=== PATIENT | male | born 1985 | race Hispanic/Latino ===

== ENCOUNTER 2018-03-04 17:49 | Inpatient (IN) | payer SELFPAY ==
[2018-03-04 18:29] LABS: Bilirubin Negative (Negative); Blood, Urine Negative (Negative); Clarity CLEAR (Clear); Glucose, Urine (Dipstick) 100 mg/dL (Negative); Leukocyte Negative (Negative); Nitrite Negative (Negative); Protein, Urine (Dipstick) Negative (Neg-Trace); Specific Gravity, Urine 1.011 (1.002-1.036); Urobilinogen 0.2 mg/dL (0.2-1.0)
[2018-03-04] MEDS ORDERED: Morphine 4 MG/ML VIAL ONE (18:35)
[2018-03-04] MEDS ORDERED: Sodium Chloride 0.9% 1,000 ML IV SCH (21:38)
[2018-03-04] MEDS ORDERED: Ondansetron ODT 4 MG TAB SL PRN (21:38)
[2018-03-04] MEDS ORDERED: Ondansetron PF 4 MG/2 ML Vial IVP PRN (21:38)
[2018-03-04] MEDS: Morphine 4 MG/ML VIAL SLOW IVP PRN (21:43)
[2018-03-04 21:57] VITALS: BMI 26.9
[2018-03-04] MEDS ORDERED: Bisacodyl 10 MG SUPP PR PRN (23:17)
[2018-03-04] MEDS ORDERED: Senokot S 8.6-50 MG TAB PO PRN (23:17)
[2018-03-04] MEDS ORDERED: Bisacodyl 5 MG TAB PO PRN (23:17)
[2018-03-05] MEDS: Morphine 4 MG/ML VIAL SLOW IVP PRN ×7 (00:13→21:04)
[2018-03-05] MEDS: Lactated Ringer's 1,000 ML IV SCH ×6 (00:14→22:56)
[2018-03-05 07:45] LABS: #Lymphocytes 1.3 thou/uL (1.20-3.40); #Monocytes 1.1 thou/uL (0.11-0.59); #Neutrophils 12.5 thou/uL (1.40-6.50); %Basophils 0.1 % (0.0-1.0); %Eosinophils 0.1 % (0.0-10.0); %Lymphocytes 8.6 % (21.0-51.0); %Monocytes 7.7 % (0.0-10.0); %Neutrophils 83.6 % (42.0-75.0); Hemoglobin 16.3 g/dL (14.0-18.0); Mean Corpuscular HGB CONC 34.1 g/dL (32.0-36.0); Mean Corpuscular Volume 79.2 fL (78.0-98.0); Mean Platelet Volume 8.6 fL (7.4-10.4); Platelet Count 230 thou/uL (130-400); RBC Distribution Width 12.4 % (11.5-14.5); Red Blood Cell (RBC) Count 6.04 mill/uL (4.70-6.10); White Blood Cell (WBC) Count 14.9 thou/uL (4.8-10.8)
[2018-03-05 08:08] LABS: Anion Gap 16 mmol/L (10-20); BUN (Urea Nitrogen) 12 mg/dL (8.9-20.6); Calc. Creatinine Clearance 143 mL/min (70-130); Calcium 8.4 mg/dL (7.8-10.44); Carbon Dioxide 21 mmol/L (22-29); Chloride 101 mmol/L (98-107); Cholesterol 174 mg/dl (< 200 Desired); Estimated GFR-MDRD Greater than 90; Glucose 177 mg/dL (70-105); HDL Cholesterol 43 mg/dL (>60 Neg Risk); LDL Cholesterol, Calculated 107 mg/dL; Potassium 3.8 mmol/L (3.5-5.1); Sodium 134 mmol/L (136-145); Triglycerides 121 mg/dL (Less than 150)
--- NOTE | 2018-03-05 09:16 | ULT ---
RIGHT UPPER QUADRANT ULTRASOUND: DATE: 03/05/2018. COMPARISON: None. HISTORY: Pancreatitis, evaluate for gallstones. TECHNIQUE: Multiplanar, hawkins scale sonographic imaging right upper quadrant obtained. FINDINGS: Broadcast Supervisor did not comment on the presence or absence of a Pacheco's sign. Pancreas is not well asses sed on this study secondary to overlying bowel gas. The pancreas does appear prominent in the AP dim ension, which could signify enlargement on the basis of pancreatitis given provided history of pancre atitis. The hepatic parenchyma is heterogeneous and echogenic, suggesting hepatocellular disease, such as acrol ann atosis. The common bile duct measures 4 mm, within normal limits. No gallbladder wall thickening or pericholecystic fluid. No gallstones are evident on this exam. Th ere may be small volume gallbladder sludge versus artifact. The right kidney measured 11.8 cm cranio caudal dimension and demonstrates no stone, hydronephrosis, or mass. IMPRESSION: Technically limited assessment secondary to bowel gas demonstrating no evidence for cholelithiasis. Probable hepatic steatosis. No biliary dilatation. POS: FR[facility]ESCO
[2018-03-05] MEDS ORDERED: Morphine 4 MG/ML VIAL IV SCH (09:45)
--- NOTE | 2018-03-05 10:41 | CON ---
DATE OF CONSULTATION: HISTORY OF PRESENT ILLNESS: The patient is a 32-year-old male, who was in his normal state of health until the day prior to admission when he developed severe abdominal pain. He reports this was in his periumbilical area. He had a previous episode of pancreatitis back in September of 2016, and he says this pain is the same as that episode. He has had no nausea or vomiting. No weight loss. No fever or chills. No melena or hematochezia. PAST MEDICAL HISTORY: Essentially negative. PAST SURGICAL HISTORY: Negative. MEDICATIONS: He denies any prescription medicines. SOCIAL HISTORY: He does not smoke. He drinks, he says 14 beers per day, one day a week. His prior history included large amounts of alcohol. FAMILY HISTORY: Negative. REVIEW OF SYSTEMS: Ten systems were reviewed and were negative except for above. PHYSICAL EXAMINATION: GENERAL: Shows a well-developed, well-nourished male, in no acute distress. VITAL SIGNS: Temperature 98.4, pulse 84, respiratory rate 18, and blood pressure 138/89. HEENT: Unremarkable. NECK: Supple. CHEST: Clear. CARDIOVASCULAR: Regular rate and rhythm without murmurs or gallops. ABDOMEN: Soft, tender diffusely without organomegaly or masses. RECTAL: Deferred. EXTREMITIES: Normal. NEUROLOGIC: Nonfocal. DIAGNOSTIC DATA: Abdominal ultrasound showed a technically limited assessment secondary to overlying bowel gas, but no gallstones are noted. Fatty liver is noted. No biliary dilatation is noted. Prior abdominal CT in September of 2016 showed pancreatitis. Admission hemoglobin was 17.0, hematocrit of 52.2, and white blood cell count of 14.1. Repeat hemoglobin showed a level of 16.3. Chemistry showed normal LFTs, triglyceride of 121. Amylase of 1609, lipase of 5874. ASSESSMENT: 1. Acute alcoholic pancreatitis. 2. Alcohol abuse. RECOMMENDATIONS: 1. Continue aggressive IV rehydration. 2. N.p.o. 3. Alcohol abstinence. 4. We will follow with you. Job ID: [id number]
[2018-03-05] MEDS ORDERED: Ondansetron PF 4 MG/2 ML Vial IVP PRN (12:26)
--- NOTE | 2018-03-05 12:34 | PDOC.PN ---
- Subjective Encounter Start Date: 03/05/18 Encounter Start Time: 12:25 Subjective: f/u for ETOH-induced pancreatitis on IVF's, Morphine sulfate. Pain improved -: with Morphine, no N/V. Currently NPO. - Objective Resuscitation Status - Order Detail: 03/04/18 23:17 Resuscitation Status Routine Resuscitation Status: FULL: Full Resuscitation MAR Reviewed: Yes Vital Signs & Weight: Vital Signs (12 hours) Temp Pulse Resp BP Pulse Ox 03/05/18 11:21 98.9 F 83 18 151/93 H 94 L 03/05/18 08:00 93 L 03/05/18 07:35 98.4 F 84 18 138/89 93 L 03/05/18 04:00 98.5 F 75 17 150/94 H 94 L Weight Weight 171 lb 9.6 oz I&O: 03/04/18 03/05/18 03/06/18 06:59 06:59 06:59 Intake Total 1500 Balance 1500 Result Diagrams: 03/05/18 07:16 03/05/18 07:16 Additional Labs: Laboratory Tests 03/04/18 03/05/18 15:15 07:16 AST 29 ALT 42 Alkaline Phosphatase 94 Triglycerides 121 Lipase 5874 H Radiology Reviewed by me: Yes (ABD sono - hepatic steatosis, no cholelithiasis) Phys Exam - Physical Examination Constitutional: NAD HEENT: PERRLA, sclera anicteric, oral pharynx no lesions Neck: no nodes, no JVD, supple, full ROM Respiratory: no wheezing, no rales, no rhonchi, clear to auscultation bilateral S1, S2 Cardiovascular: RRR, no significant murmur, no rub, gallop + TTP in mid-epigastric region Gastrointestinal: soft, no distention, positive bowel sounds Musculoskeletal: no edema, pulses present Neurological: normal sensation, moves all 4 limbs Psychiatric: A&O x 3 Skin: no rash, normal turgor, cap refill <2 seconds Dx/Plan (1) Alcohol-induced pancreatitis Code(s): K85.20 - ALCOHOL INDUCED ACUTE PANCREATITIS WITHOUT NECROSIS OR INFCT Status: Acute Qualifiers: Chronicity: acute Comment: ETOH-induced, NPO, IVF's, pain control with Morphine Sulfate IV, serial Lipase (2) Alcohol abuse Code(s): F10.10 - ALCOHOL ABUSE, UNCOMPLICATED Status: Chronic Comment: Counseled regarding effects for recurrence, encourage abstinence (3) Leukocytosis Code(s): D72.829 - ELEVATED WHITE BLOOD CELL COUNT, UNSPECIFIED Status: Acute Comment: Secondary to #1, serial monitoring, no evidence for focal infectious process (4) Hypertension Code(s): I10 - ESSENTIAL (PRIMARY) HYPERTENSION Status: Chronic Qualifiers: Hypertension type: essential hypertension Qualified Code(s): I10 - Essential (primary) hypertension Comment: No current outpt tx, serial monitoring, consider medical therapy prior to d/c - Plan out of bed/ambulate Stable currently -: Continue IVF's -: Continue Morphine Sulfate IV for pain control -: NPO another 24h -: AM lab: CMP, CBC, Lipase * .
[2018-03-05] MEDS: Acetaminophen 325 MG TAB PO PRN (21:10)
[2018-03-06] MEDS: Morphine 4 MG/ML VIAL SLOW IVP PRN ×4 (00:02→23:47)
[2018-03-06] MEDS: Acetaminophen 650 MG Suppository PR PRN ×2 (00:10→08:54)
--- NOTE | 2018-03-06 01:30 | HP ---
CHIEF COMPLAINT: Abdominal pain. HISTORY OF PRESENT ILLNESS: This is a 32-year-old male with past medical history of pancreatitis, ethanol abuse, presenting with abdominal pain which started the day prior to this hospital visit. Per the patient, he has been having abdominal pain which started around the umbilicus region, radiates to the epigastric and the pain went to his back. The patient states that he binge drank the day prior to the admission and that is when around the time the pain started. The patient states that the pain is 7/10, severe, constant pain. At this point, the patient denies any fever, chills, dizziness, headaches, chest pain, palpitations, dysuria, hematuria, melena, or hematochezia. The patient endorses nausea and decreased p.o. intake. Of note, the patient had pancreatitis in September of 2016. REVIEW OF SYSTEMS: Positive for abdominal pain, nausea, and vomiting. Otherwise as documented, all other systems reviewed and are negative. PAST MEDICAL HISTORY: Gastritis, pancreatitis, binge drinking. FAMILY HISTORY: reviewed and non-contributory PAST SURGICAL HISTORY: No surgical history. PSYCHIATRIC HISTORY: No previous psych history. SOCIAL HISTORY: The patient denies illicit drug use or smoking. The patient drinks heavily on occasions. ALLERGIES: NO KNOWN DRUG ALLERGIES MEDICATIONS. CURRENT MEDICATIONS: No current medications. PHYSICAL EXAMINATION: VITAL SIGNS: The patient's blood pressure 162/106, pulse of 92, respiratory rate of 18, O2 saturation of 98% on room air. GENERAL: The patient is lying in bed, does not appear to be in any acute distress. The patient is alert and oriented x3. HEENT: Normocephalic, atraumatic. Pupils are equally round and reactive to light. Extraocular movements are intact. No scleral icterus. No conjunctival pallor. Mucous membranes are dry. NECK: Trachea is midline. Full range of motion. No JVD. RESPIRATORY: Lungs are clear to auscultation bilaterally. No wheezing, no rales, no rhonchi appreciated. CARDIAC: Positive S1 and S2. Regular rate and rhythm. No murmurs, no gallops , no rubs appreciated. ABDOMEN: Tenderness around the umbilicus and epigastric area with moderate intensity. There is no masses that can be appreciated. Negative Pacheco sign. Negative McBurney's point. EXTREMITIES: The patient has 5/5 upper extremity strength and 5/5 lower extremity strength. No edema noted. NEUROLOGIC: Cranial nerves 2 through 12 grossly intact. No neurologic deficits noted. SKIN: Warm, dry, and intact. IMAGING STUDIES: Right upper quadrant ultrasound showed no evidence for cholelithiasis. LABORATORY DATA: WBC is 14.9, otherwise hemoglobin is normal at 16.3. Electrolytes; sodium is 134, glucose is 177, BUN is 16, creatinine is 0.80. Lipase was elevated at 5874. ASSESSMENT AND PLAN: This is a 32-year-old male being admitted for: 1. Acute alcoholic pancreatitis. At this point, we are aggressively hydrating the patient. We have consulted GI. We will follow up with their recommendations. We will give the patient p.r.n. pain medications. 2. Ethanol abuse. We have advised the patient to taper down on his alcohol binge drinking. 3. Leukocytosis, likely reactive. At this point, the patient is receiving IV hydration. We will follow up on morning labs. 4. DVT and GI prophylaxis. Job ID: [id number] [facility]
[2018-03-06] MEDS: Lactated Ringer's 1,000 ML IV SCH ×5 (01:31→18:09)
[2018-03-06 07:17] LABS: ALT (SGPT) 18 U/L (8-55); AST (SGOT) 15 U/L (5-34); Albumin 3.7 g/dL (3.5-5.0); Alkaline Phosphatase 55 U/L (40-150); Anion Gap 11 mmol/L (10-20); BUN (Urea Nitrogen) 8 mg/dL (8.9-20.6); Bilirubin, Total 1.9 mg/dL (0.2-1.2); Calc. Creatinine Clearance 135 mL/min (70-130); Calcium 8.8 mg/dL (7.8-10.44); Carbon Dioxide 25 mmol/L (22-29); Chloride 98 mmol/L (98-107); Estimated GFR-MDRD Greater than 90; Globulin 2.7 g/dL (2.4-3.5); Glucose 135 mg/dL (70-105); Lipase 355 U/L (8-78); Mean Corpuscular HGB CONC 33.3 g/dL (32.0-36.0); Mean Corpuscular Volume 80.9 fL (78.0-98.0); Mean Platelet Volume 8.7 fL (7.4-10.4); Platelet Count 198 thou/uL (130-400); Potassium 3.9 mmol/L (3.5-5.1); Protein, Total 6.4 g/dL (6.0-8.3); RBC Distribution Width 12.7 % (11.5-14.5); Red Blood Cell (RBC) Count 5.95 mill/uL (4.70-6.10); Sodium 130 mmol/L (136-145); White Blood Cell (WBC) Count 15.7 thou/uL (4.8-10.8)
[2018-03-06 07:59] LABS: Band 34 % (5-11); Lymphocytes 7 % (21-51); MDiff Complete? YES; Monocytes 4 % (0-10); Neutrophil 45 % (42-75); Nucleated RBC 1 % (0); RBC Morphology Normal; Reactive Lymphocytes 10 % (0-10)
[2018-03-06] MEDS: Acetaminophen 325 MG TAB PO PRN ×3 (09:33→22:17)
--- NOTE | 2018-03-06 12:26 | PRG ---
DATE OF SERVICE: 03/06/2018 SUBJECTIVE: Mr. Valle says he is feeling a bit better today. His pain medicine requirement is less and he was started on a clear liquid diet and that is going okay. He is still having some discomfort in the right side of the abdomen and also is feeling a bit constipated. He was spiking some low-grade fevers overnight, but has been hemodynamically stable. OBJECTIVE: VITAL SIGNS: T-max is 101.1, current temperature is 98.7; pulse 100; blood pressure 113/75; 92% oxygen saturation on room air. GENERAL: No acute distress. HEART: Regular rate and rhythm. LUNGS: Clear to auscultation bilaterally. ABDOMEN: Bowel sounds are hypoactive. The abdomen is nondistended. Some tenderness to palpation on the right side of the abdomen, but no guarding or rebound tenderness. No masses or organomegaly appreciated. EXTREMITIES: No peripheral edema. LABORATORY STUDIES: WBC 15.7, hemoglobin 16.0, platelets 198. Sodium 130, potassium 3.9, BUN 8, creatinine 0.85. Total bilirubin is 1.9, otherwise normal LFTs with alkaline phosphatase 55, AST 15, ALT 18, lipase down to 355. ASSESSMENT AND PLAN: 1. Acute alcohol-induced pancreatitis, without complications. This is the patient's second episode of alcohol induced pancreatitis. There is no evidence of any complication at this point. Clinically, he is improving. 2. Low-grade fevers, likely secondary to systemic inflammatory response. I would continue with supportive care at this time. Pain requirements hopefully continue to decrease. He is tolerating clear liquids. If he is doing okay tomorrow, consider advancing diet as tolerated. Some of his abdominal discomfort may be related to constipation secondary to the pancreatitis and narcotic effect. 3. GI will continue to follow along. Please call anytime with questions or concerns. Job ID: [id number]
--- NOTE | 2018-03-06 13:53 | PDOC.PN ---
- Subjective Encounter Start Date: 03/06/18 Encounter Start Time: 13:45 Subjective: f/u for ETOH-induced pancreatitis with overall improving Lipase trend. -: Some residual abd pain but tolerating clear liquids. No N/V. - Objective Resuscitation Status - Order Detail: 03/04/18 23:17 Resuscitation Status Routine Resuscitation Status: FULL: Full Resuscitation MAR Reviewed: Yes Vital Signs & Weight: Vital Signs (12 hours) Temp Pulse Resp BP Pulse Ox 03/06/18 11:51 98.7 F 100 18 113/75 92 L 03/06/18 08:14 100.7 F H 98 18 129/73 92 L 03/06/18 08:00 92 L 03/06/18 04:07 99.4 F 94 18 148/77 H 92 L Weight Weight 171 lb 9.6 oz Tmax - 101.1F I&O: 03/05/18 03/06/18 03/07/18 06:59 06:59 06:59 Intake Total 1500 4800 Output Total 1550 Balance 1500 3250 Result Diagrams: 03/06/18 06:14 03/06/18 06:14 Additional Labs: Laboratory Tests 03/04/18 03/05/18 03/05/18 15:15 07:16 07:16 WBC 14.9 H Neutrophils % 83.6 H Neutrophils % (Manual) Band Neuts % (Manual) Sodium 134 L AST 29 ALT 42 Alkaline Phosphatase 94 Triglycerides 121 Lipase 5874 H 03/06/18 03/06/18 06:14 06:14 WBC Neutrophils % Neutrophils % (Manual) 45 Band Neuts % (Manual) 34 H Sodium AST ALT Alkaline Phosphatase Triglycerides Lipase 355 H Phys Exam - Physical Examination Constitutional: NAD HEENT: PERRLA, sclera anicteric, oral pharynx no lesions Neck: no nodes, no JVD, supple, full ROM Respiratory: no wheezing, no rales, no rhonchi, clear to auscultation bilateral S1, S2 Cardiovascular: RRR, no significant murmur, no rub, gallop TTP in mid-epigastric region Gastrointestinal: soft, positive bowel sounds Musculoskeletal: no edema, pulses present Neurological: normal sensation, moves all 4 limbs Psychiatric: normal affect, A&O x 3 Skin: normal turgor, cap refill <2 seconds Dx/Plan (1) Alcohol-induced pancreatitis Code(s): K85.20 - ALCOHOL INDUCED ACUTE PANCREATITIS WITHOUT NECROSIS OR INFCT Status: Acute Qualifiers: Chronicity: acute Comment: Improved, ETOH-induced, clear liquids, IVF's, pain control with Morphine Sulfate IV, serial Lipase (2) Alcohol abuse Code(s): F10.10 - ALCOHOL ABUSE, UNCOMPLICATED Status: Chronic Comment: Counseled regarding effects for recurrence, encourage abstinence (3) Leukocytosis Code(s): D72.829 - ELEVATED WHITE BLOOD CELL COUNT, UNSPECIFIED Status: Acute Comment: Secondary to #1, serial monitoring, no evidence for focal infectious process (4) Hypertension Code(s): I10 - ESSENTIAL (PRIMARY) HYPERTENSION Status: Chronic Qualifiers: Hypertension type: essential hypertension Qualified Code(s): I10 - Essential (primary) hypertension Comment: No current outpt tx, serial monitoring, consider medical therapy prior to d/c (5) Febrile illness, acute Code(s): R50.9 - FEVER, UNSPECIFIED Status: Acute Comment: Likely due to #1 , serial monitoring, Tylenol/Toradol - Plan plan discussed w/ family, social science teacher, out of bed/ambulate, DVT proph w/SCDs Stable overall -: Decrease IVF's 100ml/h -: Add Toradol 30mg IV q6h prn -: OOB/ambulate -: Start clear liquids * AM lab: CMP, CBC, Lipase
[2018-03-06] MEDS ORDERED: Ketorolac Tromethamine 30 MG/ML VIAL IVP PRN (13:57)
[2018-03-07] MEDS: Lactated Ringer's 1,000 ML IV SCH (04:13)
[2018-03-07] MEDS: Acetaminophen 325 MG TAB PO PRN (04:18)
[2018-03-07 07:46] LABS: Hemoglobin 14.1 g/dL (14.0-18.0); Mean Corpuscular HGB CONC 32.6 g/dL (32.0-36.0); Mean Corpuscular Hemoglobin 26.5 pg (27.0-31.0); Mean Corpuscular Volume 81.2 fL (78.0-98.0); Mean Platelet Volume 8.7 fL (7.4-10.4); Platelet Count 183 thou/uL (130-400); RBC Distribution Width 12.3 % (11.5-14.5); Red Blood Cell (RBC) Count 5.32 mill/uL (4.70-6.10); White Blood Cell (WBC) Count 13.5 thou/uL (4.8-10.8)
[2018-03-07 07:47] LABS: ALT (SGPT) 15 U/L (8-55); AST (SGOT) 14 U/L (5-34); Albumin 3.6 g/dL (3.5-5.0); Alkaline Phosphatase 66 U/L (40-150); Anion Gap 13 mmol/L (10-20); BUN (Urea Nitrogen) 9 mg/dL (8.9-20.6); Calc. Creatinine Clearance 136 mL/min (70-130); Calcium 8.9 mg/dL (7.8-10.44); Carbon Dioxide 23 mmol/L (22-29); Chloride 101 mmol/L (98-107); Estimated GFR-MDRD Greater than 90; Globulin 3.1 g/dL (2.4-3.5); Glucose 133 mg/dL (70-105); Lipase 121 U/L (8-78); Potassium 4.2 mmol/L (3.5-5.1); Protein, Total 6.7 g/dL (6.0-8.3); Sodium 133 mmol/L (136-145)
[2018-03-07 09:08] LABS: Band 27 % (5-11); Lymphocytes 9 % (21-51); MDiff Complete? YES; Monocytes 4 % (0-10); Neutrophil 58 % (42-75); RBC Morphology Normal; Reactive Lymphocytes 1 % (0-10)
[2018-03-07 12:13] VITALS: BP 116/74; TEMP 99.7
--- NOTE | 2018-03-08 05:28 | DIS ---
DATE OF ADMISSION: 03/04/2018 DATE OF DISCHARGE: 03/07/2018 DISCHARGE DIAGNOSES: 1. Alcohol-induced pancreatitis, improved. 2. Alcohol abuse. 3. Leukocytosis secondary to #1, improved. 4. Elevated blood pressure secondary to pain. 5. Febrile illness secondary to #1. CONSULTATIONS: Dr. Esposito and Dr. Mulligan with GI Service. PERTINENT LAB AND X-RAY FINDINGS: Sodium ranged between 130 to 134. Total bilirubin ranged between 0.5 to 2.0, triglycerides 121, lipase ranged between 121 to 5874. CBC showed a white blood cell count ranged between 13.5 to 15.7. Abdominal ultrasound dated 03/05/2018 showed a limited study due to bowel gas. Hepatic steatosis. HOSPITAL COURSE: The patient was admitted to the medical floor after initially presenting with increased abdominal pain with nausea in the context of ongoing alcohol abuse. The patient was evaluated including abdominal ultrasound and metabolic survey with elevated lipase over 5000. The patient was treated for acute alcohol-induced pancreatitis with n.p.o. status as well as IV fluids. The patient was slow to clinically improve, eventually transitioning to clear liquids. The patient received morphine sulfate intravenously for symptomatic relief with overall improvement in abdominal symptoms. The patient was noted with low-grade fever in the context of acute pancreatitis; however, no specific recommendations for antibiotic therapy or evidence of an acute infectious process. The patient was counseled regarding the need for alcohol cessation and given information and resources after discharge. I have examined the patient at the time of discharge and discussed followup instructions. The patient verbalized understanding and in agreement, ready for discharge on 03/07/2018. DISCHARGE MEDICATIONS: Reviewed and negative. FOLLOWUP: The patient to follow up with his primary care provider at [facility] in [place], [place] within 7 days of discharge. CONDITION ON DISCHARGE: Stable. ACTIVITY: Ad-marie. DIET: Clear liquids x72 hours, then regular. CODE STATUS: Full. DISPOSITION: Home on 03/07/2018. Job ID: [id number]
== END 2018-03-07 15:33 | disposition home or self-care (01) | DRG 440 ==
LOC: ERS 17:49 → T4-A 19:12
PROVIDERS: ADMIT Family Medicine; ATTEND Family Medicine
DX: K85.20 Alcohol induced acute pancreatitis without necrosis or infection (principal); F10.10 Alcohol abuse, uncomplicated; I10 Essential (primary) hypertension; Z71.41 Alcohol abuse counseling and surveillance of alcoholic
CPT/HCPCS: 36415; 76705; 80048; 80053; 80061; 83690; 85007; 85025; 85027; 96361; 96374; J1885; J2270